=== PATIENT | male | born 1990 | race Two or more races ===

== ENCOUNTER 2024-09-18 07:57 | Emergency (ER) | payer OTHER, SELFPAY ==
[2024-09-18 08:00] VITALS: BP 146/86; PULSE 112; RESP 18; TEMP 36.6; O2SAT 97; BMI 38.7
--- NOTE | 2024-09-18 08:23 | ED.GENADULT ---
HPI - General Adult General Chief complaint: Unspecified Complaint, Adult Stated complaint: cyst - pain Time Seen by Provider: 09/18/24 08:19 History of Present Illness HPI narrative: L upper groin cyst or abcess pt thinks from shaving. pain started 2-3 days ago, pain getting worse. 34-year-old man presenting to the emergency department with complaint of left groin area pain. Began 2 or 3 days ago and this just been escalating and. Is becoming unbearable. No fever. No drainage. Is says he thought he would be a teenager again and shave this area. Suspects that is the nidus. No other trauma noted. Any movement or touch is terribly painful. Can barely walk. No noted penile discharge. Related Data Previous Rx's ?Medication ?Instructions ?Recorded cephalexin 500 mg capsule 500 mg PO TID 8 days #24 caps 09/18/24 oxycodone-acetaminophen 5 mg-325 1 - 2 tab PO Q4-6H PRN pain #8 tabs 09/18/24 mg tablet (Percocet) Allergies Allergy/AdvReac Type Severity Reaction Status Date / Time No Known Drug Allergies Allergy Verified 09/19/24 14:21 Review of Systems Status of ROS: Reports: 6 or more systems reviewed and unremarkable except as noted in History and below PFSH PFS Social History Smoking Status: Never smoker Do you use any of these nicotine containing products: None Second hand tobacco smoke exposure: No How often do you have a drink containing alcohol: never AUDIT-C Alcohol total score: 0 Non-prescribed substance use: denies use service: No Exam Narrative: Exam Narrative: Pleasant. Clearly very uncomfortable. Heavily tattooed arms. Lying frog-legged in bed. At the left mid upper inguinal area there is a 5 cm in largest dimension inguinal swelling. Firm. Erythematous. Some superficial sloughing of skin centrally. Exquisitely tender. No lesions on the scrotal or penile skin. Const: Vital Signs, click to edit/add: Vital Signs - 24 hr 09/18/24 08:00 Temperature 98 F Pulse Rate [Pulse Oximeter] 112 H Respiratory Rate 18 Blood Pressure [Ri ght Upper Arm] 146/86 H Pulse Oximetry 97 Oxygen Delivery Me thod Room Air Documenting provider has reviewed patient's vital signs: yes Course Vital Signs Vital signs: Initial Vital Signs Temperature 98 F 09/18/24 08:00 Temperature Source Temporal Artery Scan 09/18/24 08:00 Pulse Rate 112 H 09/18/24 08:00 Respiratory Rate 18 09/18/24 08:00 Blood Pressure 146/86 H 09/18/24 08:00 Blood Pressure Mean 106 H 09/18/24 08:00 Blood Pressure Position Sitting 09/18/24 08:00 Pulse Oximetry 97 09/18/24 08:00 Oxygen Delivery Method Room Air 09/18/24 08:00 Vital Signs Temperature 98 F 09/18/24 08:00 Pulse Rate 112 H 09/18/24 08:00 Respiratory Rate 18 09/18/24 08:00 Blood Pressure 146/86 H 09/18/24 08:00 Pulse Oximetry 97 09/18/24 08:00 Oxygen Delivery Method Room Air 09/18/24 08:00 Temperature 98 F 09/18/24 08:00 Pulse Rate 112 H 09/18/24 08:00 Respiratory Rate 18 09/18/24 08:00 Blood Pressure 146/86 H 09/18/24 08:00 Pulse Oximetry 97 09/18/24 08:00 Oxygen Delivery Method Room Air 09/18/24 08:00 Medications Administered Medications: Discontinued Medications Generic Name Dose Route Start Last Admin Trade Name Freq PRN Reason Stop Dose Admin Hydromorphone HCl 1 mg 09/18/24 08:33 09/18/24 08:45 Hydromorphone 0.5 Mg/0.5 Ml Inj IVP 09/18/24 08:34 1 mg ONCE ONE Administration Ketorolac Tromethamine 30 mg 09/18/24 08:33 09/18/24 08:45 Ketorolac 30 Mg/Ml Inj IVP 09/18/24 08:34 30 mg ONCE ONE Administration Medical Decision Making MDM Narrative Medical decision making narrative: Presuming abscess here. 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 Will try to get pain under control. Place IV. Will verify suspected abscess with ultrasound. Might need to get General surgery involved I did return to perform point of care ultrasound on this area. Appears to be a 1/2 inch fluid collection on the upper aspect of the swelling. After anesthetizing with lidocaine with epinephrine I did ultrasound locate 18 gauge needle and withdrew a very small, 1 mL or less, amount of serosanguineous liquid. Antibiotic ointment and Band-Aid placed. See patient discharge plan for further discussion Change dressing as needed or at least daily. Consider soaking in Sitz baths 1-2 times daily over the next few days. Can take ibuprofen up to 800 mg per dose or up to 1000 mg of acetaminophen per dose. Might want to take ibuprofen or naproxen to 500 mg 2 times daily regularly over the next few days Prescribing cephalexin and [place] from [facility]. A wound culture will be pending here and we will call you if antibiotics might need to be changed. Medical Records Medical records reviewed: Yes I reviewed the patient's medical records Discharge Plan Discharge Clinical Impression: Inguinal abscess, Cellulitis Patient Disposition: Home w/ Parent or Adult Condition: Improved Additional Instructions: Change dressing as needed or at least daily. Consider soaking in Sitz baths 1-2 times daily over the next few days. Can take ibuprofen up to 800 mg per dose or up to 1000 mg of acetaminophen per dose. Might want to take ibuprofen or naproxen to 500 mg 2 times daily regularly over the next few days Prescribing cephalexin and [place] from [facility]. A wound culture will be pending here and we will call you if antibiotics might need to be changed. Prescriptions: New cephalexin 500 mg capsule 500 mg PO TID 8 Days Qty: 24 0RF oxycodone-acetaminophen [Percocet] 5-325 mg tablet 1 - 2 tab PO Q4-6H PRN (Reason: pain) Qty: 8 0RF Follow Up/Referrals: Provider,Not a Local [Primary Care Provider] - Stand Alone Forms: [employer] Info Instructions
[2024-09-18] MEDS: KETOROLAC 30 MG/ML inj IVP (08:45)
[2024-09-18] MEDS: HYDROmorphone 0.5 mg/0.5 ml inj 1 MG IVP (08:45)
== END 2024-09-18 11:18 | disposition home or self-care (01) ==
PROVIDERS: Emergency Provider Family Medicine
DX: L02.214 Cutaneous abscess of groin (principal)
CPT/HCPCS: 10060; 87070; 87186; 96374; 96375; 99283; 99284; J1171; J1885

== ENCOUNTER 2024-09-19 14:16 | Emergency (ER) | payer OTHER, SELFPAY ==
[2024-09-19 14:22] VITALS: BP 114/74; PULSE 122; RESP 16; TEMP 36.9; O2SAT 97; BMI 34.9
--- NOTE | 2024-09-19 16:27 | ED.GENADULT ---
HPI - General Adult General Date Seen: 09/19/24 Chief complaint: Skin/Abscess/Foreign Body Stated complaint: cyst Time Seen by Provider: 09/19/24 16:26 History of Present Illness HPI narrative: Very pleasant 34-year-old male who is generally healthy. He is accompanied to the ER tonight by his and his daughter for evaluation of a left groin infection. They suspect he has a expanding abscess. He notes that a couple of weeks ago he did use a razor to trim his hair in the pubic region. He says he will never do that again. He developed a small infection which apparently began is an ingrown hair follicle few days ago. It has been increasingly red and swollen. Was seen in the ER yesterday on 09/18 for pain in his left groin area. It sounds like he had a bedside ultrasound and then aspiration of fluid from the area. He was sent home on cephalexin. He was also given a prescription for oxycodone for pain. He took 1 of those pills earlier today but it was completely ineffective so he is not take it anymore. He has had a couple of doses of cephalexin. He is noted be significantly increasing redness and swelling and pain in the left groin. He is not having any fever chills. No other body aches or weakness. He came back to the ER. His believes he probably needs a incision and drainage with packing. Related Data Previous Rx's ?Medication ?Instructions ?Recorded cephalexin 500 mg capsule 500 mg PO TID 8 days #24 caps 09/18/24 oxycodone-acetaminophen 5 mg-325 1 - 2 tab PO Q4-6H PRN pain #8 tabs 09/18/24 mg tablet (Percocet) hydromorphone 2 mg tablet 2 mg PO Q6H PRN pain #10 tabs 09/19/24 (Dilaudid) sulfamethoxazole 800 1 tab PO Q12H #14 tabs 09/19/24 mg-trimethoprim 160 mg tablet (Bactrim DS) Allergies Allergy/AdvReac Type Severity Reaction Status Date / Time No Known Drug Allergies Allergy Verified 09/19/24 14:21 PFSH PFSH Social History Smoking Status: Never smoker Do you use any of these nicotine containing products: None Second hand tobacco smoke exposure: No How often do you have a drink containing alcohol: never AUDIT-C Alcohol total score: 0 Non-prescribed substance use: denies use service: No Exam Narrative: Exam Narrative: Constitutional: Appears well-developed and well-nourished. Alert. Conversant. Non toxic. Very polite. HENT: Head: Atraumatic. Nose: Nose normal. Mouth/Throat: Oral mucosa is clear and moist. no trismus. Eyes: Conjunctivae normal. EOM normal. Pupils equal, round, and reactive to light. No scleral icterus. Neck: Normal range of motion. Neck supple. No tracheal deviation present. Cardiovascular: Tachycardic, regular rhythm. No gallop. No friction rub. No murmur heard. Symmetric radial artery pulses Pulmonary/Chest: Effort normal. No stridor. No respiratory distress. No wheezes. No rales. No rhonchi . No tenderness. Abdominal: Soft. Bowel sounds normal. No distension. No mass. No tenderness. No rebound. No guarding. Musculoskeletal: RUE: Normal range of motion. No tenderness. No deformity LUE: Normal range of motion. No tenderness. No deformity RLE: Normal range of motion. No edema. No tenderness. No deformity LLE: Normal range of motion. No edema. No tenderness. No deformity : normal testicles and scrotum and perineum. No perineal redness or swelling. No evidence for any Tl's gangrene. He does have soft tissue swelling with induration and fluctuance perhaps 6 x 10 cm in size and the patient's left mons pubis superior to the left groin crease. No erythema extending above the inguinal ligament or down onto the patient's left thigh. Suspicious for a cellulitis with overlying abscess Lymph: He has a fair amount of swelling left groin but no definite inguinal adenopathy. Neurological: Alert and oriented to person, place, and time. Normal strength. CN II-VII intact. No sensory deficit. GCS eye subscore is 4. GCS verbal subscore is 5. GCS motor subscore is 6. Normal coordination Skin: Skin is warm and dry. No rash noted. No pallor. Normal capillary refill. Psychiatric: Normal mood. Normal affect. Const: Vital Signs, click to edit/add: Vital Signs - 24 hr 09/19/24 14:22 09/19/24 16:37 09/19/24 18:31 Temperature 98.4 F 97.5 F L 97.8 F Pulse Rate [Pulse Oximeter] 122 H 94 98 Respiratory Rate 16 20 18 Blood Pressure [Ri t Upper Arm] 114/74 120/84 130/83 Pulse Oximetry 97 97 97 Oxygen Delivery Me thod Room Air Room Air Room Air Course Vital Signs Vital signs: Initial Vital Signs Temperature 98.4 F 09/19/24 14:22 Temperature Source Temporal Artery Scan 09/19/24 14:22 Pulse Rate 122 H 09/19/24 14:22 Pulse Rhythm Regular 09/19/24 14:22 Pulse Strength 3+ Normal 09/19/24 14:22 Respiratory Rate 16 09/19/24 14:22 Blood Pressure 114/74 09/19/24 14:22 Blood Pressure Mean 87 09/19/24 14:22 Blood Pressure Position Sitting 09/19/24 14:22 Pulse Oximetry 97 09/19/24 14:22 Oxygen Delivery Method Room Air 09/19/24 14:22 Vital Signs Temperature 98.4 F 09/19/24 14:22 Pulse Rate 122 H 09/19/24 14:22 Respiratory Rate 16 09/19/24 14:22 Blood Pressure 114/74 09/19/24 14:22 Pulse Oximetry 97 09/19/24 14:22 Oxygen Delivery Method Room Air 09/19/24 14:22 Temperature 97.8 F 09/19/24 18:31 Pulse Rate 98 09/19/24 18:31 Respiratory Rate 18 09/19/24 18:31 Blood Pressure 130/83 09/19/24 18:31 Pulse Oximetry 97 09/19/24 18:31 Oxygen Delivery Method Room Air 09/19/24 18:31 Medications Administered Medications: Discontinued Medications Generic Name Dose Route Start Last Admin Trade Name Freq PRN Reason Stop Dose Admin Hydromorphone HCl 1 mg 09/19/24 17:14 09/19/24 17:46 Hydromorphone 0.5 Mg/0.5 Ml Inj IVP 09/19/24 17:15 1 mg ONCE ONE Administration Hydromorphone HCl 2 mg 09/19/24 18:41 09/19/24 18:51 Hydromorphone 2 Mg Tablet PO 09/19/24 18:42 2 mg ONCE ONE Administration Ceftriaxone Sodium 1 gm/ 100 mls @ 200 mls/hr 09/19/24 17:13 09/19/24 18:33 Sodium Chloride IVPB 09/19/24 17:14 Infused ONCE ONE Infusion Ondansetron HCl 4 mg 09/19/24 17:14 09/19/24 17:44 Ondansetron 2 Mg/Ml Inj IVP 09/19/24 17:15 4 mg ONCE ONE Administration Trimethoprim/Sulfamethoxazole 1 tab 09/19/24 18:41 09/19/24 18:52 Sulfa/Trimethoprim 800/160 1 Tab PO 09/19/24 18:42 1 tab ONCE ONE Administration Medical Decision Making MDM Narrative Medical decision making narrative: This patient presents with left groin pain and redness. Pt has signs of an abscess. I&D performed and successfully expressed purulent drainage; see procedure note. No signs of serious infx like necrotizing fasciitis. I do not see any evidence of spread onto the scrotum and perineum to suggest Tl's gangrene. He was seen in the ER yesterday and started on Keflex but has had significant progression in the amount of swelling and redness overnight. He does have tachycardia ; which improved with fluids and pain meds here in the ER. Although he is generally healthy, I am concerned about the infection. IV was started, fluids administered, IV antibiotic. Labs show white count of 19.8. Metabolic profile shows normal electrolytes and blood sugar. Discussed with the patient. I recommended hospitalization for IV antibiotics given failure of outpatient oral antibiotics in degree of spread overnight. However he would strongly prefer to discharge. I think he does have medical decision-making capacity. Therefore will have the patient expand his outpatient antibiotic coverage. Continue cephalexin and Bactrim for possible MRSA. Were culture from yesterday is so far growing Gram-positive cocci which could be MRSA, but no speciation or sensitivity data available yet. Will need wound cares q day. Plan home w/ primary; may return to ED for wound check in 48 hours if he cannot get into his PCP clinic. Antibiotics given as has some erythema and concerns about cellulitis. Warning signs for wound given on discharge instructions and verbally; see d/c instructions. He is not having good control of his pain with oxycodone. This is another reason where he may benefit from admission. However he still wants discharge home. Will try prescription for oral Dilaudid tablets. He understands opiate precautions Lab Data Labs: Lab Results 09/19/24 Range/Units 17:31 WBC 19.84 H (4.50-11.00) K/uL RBC 5.76 (4.30-5.90) m/uL Hgb 12.1 L (13.5-17.5) gm/dL Hct 40.6 (37.0-53.0) % MCV 71 L (80-100) fL MCH 21 L (26-34) pg MCHC 30 L (32-36) gm/dL RDW Coeff of Steffanie 19.0 H (11.5-15.5) % Plt Count 425 (140-440) K/uL Neut % (Auto) 82.9 H (42.0-72.0) % Lymph % (Auto) 9.0 L (20-44) % Coryell % (Auto) 6.9 (0.0-11.0) % Eos % (Auto) 0.5 (0.0-7.0) % Baso % (Auto) 0.3 (0.0-3.0) % Neut # (Auto) 16.40 H (1.7-7.0) K/uL Lymph # (Auto) 1.80 (0.90-2.90) K/uL [place] # (Auto) 1.40 H (0.00-0.90) K/UL Eos # (Auto) 0.10 (0.00-0.50) K/uL Baso # (Auto) 0.10 (0.00-0.30) K/uL Abs Immat Gran (auto) 0.10 (0.00-0.30) K/uL Imm/Tot Granulo (auto) 0.4 % Diff Slide Review Acceptable Review (Acceptable) Sodium 134 L (135-149) mmol/L Potassium 4.2 (3.6-5.1) mmol/L Chloride 102 (96-114) mmol/L Carbon Dioxide 20 (20-32) mmol/L Anion Gap 12 (7-15) mEq/L BUN 15 (5-24) mg/dL Creatinine 1.2 (0.5-1.5) mg/dL Estimated Creat Clear 78.27 Estimated GFR 81 ml/min Glucose 115 (60-115) mg/dL Calcium 8.9 (8.4-10.6) mg/dL Discharge Plan Discharge Clinical Impression: Inguinal abscess, Cellulitis Patient Disposition: Home, Self-Care Condition: Stable Instructions: Cellulitis (ED), Abscess (ED), Abscess Incision and Drainage (DC) Additional Instructions: As we discussed, do not drive or operate machinery for 6 hours after taking opiate pain killers. All pain killers can cause drowsiness, dizziness, constipation, and can be addictive Continue on the antibiotics. Continue cephalexin. Add a 2nd antibiotic, Bactrim, twice daily for 7 days Monitor the area of infection carefully. If you notice expanding redness, worsening swelling, worsening pain, fever or chills, return to the ER immediately to be rechecked Please follow-up with your regular doctor or come back to the ER in 48 hours for a wound check and to remove the wound packing. Even if you are getting better, please recheck with your doctor within 1 week Prescriptions: New hydromorphone [Dilaudid] 2 mg tablet 2 mg PO Q6H PRN (Reason: pain) Qty: 10 0RF sulfamethoxazole-trimethoprim [Bactrim DS] 800-160 mg tablet 1 tab PO Q12H Qty: 14 0RF No Action cephalexin 500 mg capsule 500 mg PO TID 8 Days Qty: 24 0RF oxycodone-acetaminophen [Percocet] 5-325 mg tablet 1 - 2 tab PO Q4-6H PRN (Reason: pain) Qty: 8 0RF Follow Up/Referrals: Provider,Not a Local [Primary Care Provider] - Stand Alone Forms: [facility] Info Instructions Procedures I/D Type: abscess Site: other (Left groin) Pre procedure diagnosis: Left groin abscess/cellulitis Post procedure diagnosis: Left groin have/says cellulitis Verification/time out: correct patient, correct site and correct procedure Anesthesia I&D: lidocaine 1% and with Epi Amount of anesthesia used (mls): 20 Side (if applicable): left Sedation/analgesia: other (Dilaudid 1 mg IV) Technique: incised with #11 blade (Single straight 2.5 cm incision. We did encounter some purulent drainage and also expressed some fairly firm clumpy caseating necrosis. Packed with iodoform gauze.) Irrigation: No Packing used?: iodoform Estimated blood loss (if any): less than 5mls Conclusion: patient tolerated procedure
[2024-09-19 16:37] VITALS: BP 120/84; PULSE 94; RESP 20; TEMP 36.4; O2SAT 97
[2024-09-19 17:43] LABS: Basophils Percent Auto 0.3 % (0.0-3.0); Eosinophils Percent Auto 0.5 % (0.0-7.0); Hematocrit 40.6 % (37.0-53.0); Hemoglobin* 12.1 gm/dL (13.5-17.5); Immature Granulocytes Pct Auto 0.4 %; Mean Corpuscular HGB Conc 30 gm/dL (32-36); Mean Corpuscular Hemoglobin 21 pg (26-34); Mean Corpuscular Volume 71 fL (80-100); Monocytes Percent Auto 6.9 % (0.0-11.0); Neutrophils Percent Auto 82.9 % (42.0-72.0); Platelet Count* 425 K/uL (140-440); Red Blood Count 5.76 m/uL (4.30-5.90); White Blood Count* 19.84 K/uL (4.50-11.00)
[2024-09-19] MEDS: ONDANSETRON 2 MG/ML inj 4 MG IVP (17:44)
[2024-09-19 17:46] LABS: Slide Review Reflex Yes
[2024-09-19] MEDS: HYDROmorphone 0.5 mg/0.5 ml inj 1 MG IVP (17:46)
[2024-09-19] MEDS: cefTRIAXone 1 GM in 0.9 % SODIUM CHLORIDE Mini-bag 100 ML IVPB (17:53)
[2024-09-19 17:56] LABS: Chloride* 102 mmol/L (96-114); Potassium* 4.2 mmol/L (3.6-5.1); Sodium* 134 mmol/L (135-149)
[2024-09-19 17:58] LABS: Creatinine* 1.2 mg/dL (0.5-1.5); Est. Creatinine Clearance* 78.27; Estimated Glomerular Filt Rate 81 ml/min
[2024-09-19 17:59] LABS: Anion Gap 12 mEq/L (7-15); Blood Urea Nitrogen* 15 mg/dL (5-24); Calcium* 8.9 mg/dL (8.4-10.6); Carbon Dioxide* 20 mmol/L (20-32); Glucose* 115 mg/dL (60-115)
[2024-09-19 18:31] VITALS: BP 130/83; PULSE 98; RESP 18; TEMP 36.6; O2SAT 97
[2024-09-19 18:46] LABS: Slide Review Acceptable Review (Acceptable)
[2024-09-19] MEDS: HYDROmorphone 2 MG TABLET PO (18:51)
[2024-09-19] MEDS: SULFA/TRIMETHOPRIM 800/160 1 TAB PO (18:52)
== END 2024-09-19 19:55 | disposition home or self-care (01) ==
PROVIDERS: Emergency Provider Emergency Medicine
DX: L02.214 Cutaneous abscess of groin (principal)
CPT/HCPCS: 10060; 10061; 36415; 80048; 85025; 87070; 96365; 96375; 99284; A9270; J0696; J1171; J2405

== ENCOUNTER 2024-09-20 09:57 | Inpatient (IN) | payer OTHER, SELFPAY ==
[2024-09-20] VITALS (7 sets, daily range): BP systolic 124–135; BP diastolic 78–86; PULSE 92–120; RESP 16–20; TEMP 36.9–37.2; O2SAT 93–97; BMI 39.2; BMI 39.8
--- OUTSIDE RECORDS SUMMARY | 2024-09-20 10:00 | XMS_ITS | Clinical Summary ---
Author Organization [facility] Address [place], [place] [address] Care Team Providers Care Turning Machine Operator Name Role Phone Brian Foster MD Primary Care Provider [phone] Allergies No known active allergies Medications albuterol HFA (PRO-AIR; VENTOLIN; PROVENTIL) 90 mcg/actuation inhaler Inhale 1-2 Puffs by mouth every 4 hours if needed for Shortness of Breath 1st choice. 07/02/20 24 Active predniSONE (DELTASONE) 20 mg tablet TAKE 2 TABLETS BY MOUTH IN THE MORNING WITH FOOD FOR 7 DAYS THEN TAKE 1 TABLET DAILY UNTIL ALL TAKEN 09/05/19 25 Active ondansetron (ZOFRAN ODT) 4 mg disintegrating tablet DISSOLVE 1 TABLET ON THE TONGUE EVERY 8 HOURS FOR NAUSEA 09/05/19 25 Active cetirizine (ZYRTEC) 10 mg tabletIndications: Seasonal allergies Take 1 Tablet (10 mg) by mouth once daily. For allergies. 91 Tablet 2 09/09/19 25 Active buPROPion (WELLBUTRIN XL) 150 mg Extended-Release tabletIndications: Recurrent major depressive disorder, in partial remission (HC),Anxiety Take 1 Tablet (150 mg) by mouth once daily in the morning. For anxiety and depression. 31 Tablet 3 09/09/19 25 Active famotidine (PEPCID) 20 mg tabletIndications: Recurrent major depressive disorder, in partial remission (HC),Anxiety Take 1 Tablet (20 mg) by mouth once daily. For stomach acid. 91 Tablet 2 09/09/19 25 Active omeprazole (PRILOSEC) 40 mg Delayed-Release capsuleIndications :Chronic GERD Take 1 Capsule (40 mg) by mouth once daily before a meal. For stomach acid. 91 Capsule 2 09/09/19 25 Active Phentermine HCl 30 mg capsuleIndications :Obesity, morbid, BMI 40.0-49.9 (HC) Take 1 Capsule (30 mg) by mouth once daily. 30 Capsule 3 09/09/19 25 Active buPROPion (WELLBUTRIN SR) 100 mg Sustained-Release tablet Take 1 Tablet by mouth once daily. 08/12/20 025 Discontin ued(*Medi cation adjustmen t) cetirizine (ZYRTEC) 10 mg tablet Take 1 Tablet by mouth once daily. 08/12/20 24 025 Discontin ued(Reord er (E-cancel not sent)) Phentermine HCl 30 mg capsule Take 30 mg by mouth. 07/31/20 025 Discontin ued(Reord er (E-cancel not sent)) omeprazole (PRILOSEC) 20 mg Delayed-Release capsule Take 20 mg by mouth once daily before a meal. 05/09/20 025 Discontin ued(Reord er (E-cancel not sent)) famotidine (PEPCID) 20 mg tablet Take 1 Tablet by mouth once daily. 07/08/20 24 025 Discontin ued(Reord er (E-cancel not sent)) Active Problems Problem Noted Date Diagnosed Date Recurrent major depressive disorder, in partial remission 09/11/2024 Overview (09/11/2024): August 2024: Increased Wellbutrin SR 100mg once daily ( Per [facility] Provider) to 150mg and changed to Wellbutrin XL. Anxiety 09/11/2024 Overview (09/11/2024): August 2024: Increased Wellbutrin SR 100mg once daily ( Per [facility] Provider) to 150mg and changed to Wellbutrin XL. Chronic GERD 09/11/2024 Overview (09/11/2024): As of August 2024: taking both famotidine and omeprazole, increased omeprazole to 40mg due to poorly controlled symptoms. Seasonal allergies 09/11/2024 Obesity, morbid, BMI 40.0-49.9 09/11/2024 Overview (09/11/2024): Started on phentermine LAte 2023 by Tiffanie Mercer. Encounters Date Type Department Care Team Description 09/09/2024 11:10 AM VISUAL MERCHANDISING DIRECTOR Office Visit [facility] [address] [place] [address] Brian Foster MD Psychiatric Problem 09/09/2024 Travel from Last 3 Months Family History Medical History Relation Name Comments Cancer-breast Mother Relation Name Status Comments Mother Social History Tobacco Use Types Packs/Day Years Used Date Smoking Tobacco: Never Smokeless Tobacco: Never Tobacco Cessation:Counseling Given: Yes Alcohol Use Standard Drinks/Week Comments Yes 0 (1 standard drink = 0.6 oz pure alcohol) a glass of wine every couple months PHQ-2 Answer Date Recorded PHQ-2 TOTAL SCORE 3 09/09/2024 Social Connections Answer Date Recorded Do you often feel lonely or isolated from those around you? 0 09/09/2024 Financial Resource Strain Answer Date R ecorded Difficulty of Paying Living Expenses 3 09/09/2024 Difficulty of Paying Living Expenses Not on file 09/09/2024 Food Insecurity Answer Date Recorded Do you worry your food will run out before you are able to buy more? 1 09/09/2024 Transportation Needs Answer Date Record ed Does lack of transportation keep you from medica l appointments? 1 09/09/2024 Does lack of transportation keep you from work, meetings or getting things that you need? 1 09/09/2024 Housing Stability Answer Date Recorded What is your housing situation today? 1 09/09/2024 Utilities Answer Date Recorded Do you have trouble paying f or utilities (for example, heat, electricity, water, phone)? 1 09/09/2024 Sex and Gender Information Value Date Recorded Sex Assigned at Not on file Legal Sex Male 9:39 AM VISUAL MERCHANDISING DIRECTOR Gender Identity Not on file Sexual Orientation Not on file Obstetrics History Last Filed Vital Signs Vital Sign Reading Time Taken Comments Blood Pressure 137/90 09/09/2024 11:38 AM VISUAL MERCHANDISING DIRECTOR Pulse 86 09/09/2024 11:38 AM VISUAL MERCHANDISING DIRECTOR Temperature - - Respiratory Rate - - Oxygen Saturation 97% 09/09/2024 11:38 AM VISUAL MERCHANDISING DIRECTOR Inhaled Oxygen Concentration - - Weight 114.1 kg (251 lb 8 oz) 09/09/2024 11:38 A M VISUAL MERCHANDISING DIRECTOR Height 168 cm (5' 6.14) 09/09/2024 11:38 AM VISUAL MERCHANDISING DIRECTOR Body Mass Index 40.42 09/09/2024 11:38 AM VISUAL MERCHANDISING DIRECTOR Plan of Treatment Upcoming Encounters Date Type Department Care Team (Late st Contact Info) Description 10/14/2024 11:10 AM VISUAL MERCHANDISING DIRECTOR Office Visit [facility] [address] [place] [address] Brian Foster MD [address] [place] [address] Health Maintenance Due Date Last Done Comments Tdap 2001 HIV for age 15-65 2005 Hepatitis C screening for ag e 18-79 2008 Tetanus booster 2010 COVID-19 vaccine series (2023- season) 2024 Influenza for age 9-49 04/21/2024 BMI (ht and wt on same day) for age 18+ 09/09/2025 09/09/2024 Depression screening for age 12+ 09/09/2025 09/09/19 Pneumococcal series for age 6-49 Aged Out No longer eligible based on patient's age to complete this topic Procedures Procedure Name Priority Date/Time Associated Diagnosis Comments CBC WITH AUTO DIFFERENTIAL Routine 09/09/2024 12:45 PM VISUAL MERCHANDISING DIRECTOR Fatigue, unspecified type BASIC METABOLIC PANEL Routine 09/09/2024 12:45 PM VISUAL MERCHANDISING DIRECTOR Fatigue, unspecified type LIPID PANEL W REFLEX MEASURED LDL Routine 09/09/2024 12:45 PM VISUAL MERCHANDISING DIRECTOR Screening cholesterol level TSH WITH REFLEX Routine 09/09/2024 12:45 PM VISUAL MERCHANDISING DIRECTOR Fatigue, unspecified type from Last 3 Months Results * TSH WITH REFLEX (09/09/2024 12:45 PM VISUAL MERCHANDISING DIRECTOR) TSH W/REFLEX TO FT4 1.22 0.40 - 4.50 mIU/L [facility] Blood BLOOD SPECIMEN / Unknown 09/09/2024 12:45 PM VISUAL MERCHANDISING DIRECTOR 09/09/2024 12:47 PM VISUAL MERCHANDISING DIRECTOR Narrative [facility] - 09/10/2024 3:53 AM VISUAL MERCHANDISING DIRECTOR FASTING:YES FASTING: YES Brian Foster MD CHEMISTRY Final Res ult [employer] [facility] [address] [place] [address], [facility] [address] [place] [address] * (ABNORMAL) LIPID PANEL W REFLEX MEASURED LDL (09/09/2024 12:45 PM VISUAL MERCHANDISING DIRECTOR) CHOLESTEROL, TOTAL 157 <200 mg/dL [facility] HDL CHOLESTEROL 35(L) > OR = 40 mg/dL [facility] TRIGLYCERIDES 153(H) <150 mg/dL [facility] LDL-CHOLESTEROL 97 mg/dL (calc) [facility] Comment: Reference range: <100 Desirable range <100 mg/dL for primary prevention; <70 mg/dL for patients with CHD or diabetic patients with > or = 2 CHD risk factors. LDL-C is now calculated using the Cole-Radha calculation, which is a validated novel method providing better accuracy than the Friedewald equation in the estimation of LDL-C. Cole SS et al. CARON. 2013;310(19): 4150-1559 (http://education.RxRevu.[employer]/faq/YZX824) CHOL/HDLC RATIO 4.5 <5.0 (calc) [facility] NON HDL CHOLESTEROL 122 <130 mg/dL (calc) [facility] Comment: For patients with diabetes plus 1 major ASCVD risk factor, treating to a non-HDL-C goal of <100 mg/dL (LDL-C of <70 mg/dL) is considered a therapeutic option. Blood BLOOD SPECIMEN / Unknown 09/09/2024 12:45 PM VISUAL MERCHANDISING DIRECTOR 09/09/2024 12:47 PM VISUAL MERCHANDISING DIRECTOR Narrative [facility] - 09/10/2024 4:08 AM VISUAL MERCHANDISING DIRECTOR FASTING:YES FASTING: YES us Brian Foster MD CHEMISTRY Final Res ult [facility] [address] [place] [address], [place] [phone] [facility] [address] [place] [address] * (ABNORMAL) CBC AND DIFFERENTIAL (09/09/2024 12:45 PM VISUAL MERCHANDISING DIRECTOR) Pathologist [facility] WHITE BLOOD CELL COUNT 14.5(H) 3.8 - 10.8 Thousand/ uL [facility] RED BLOOD CELL COUNT 5.54 4.20 - 5.80 Million/u L [facility] HEMOGLOBIN 11.8(L) 13.2 - 17.1 g/dL [facility] HEMATOCRIT 39.7 38.5 - 50.0 % [facility] MCV 71.7(L) 80.0 - 100.0 fL [facility] MCH 21.3(L) 27.0 - 33.0 pg [facility] MCHC 29.7(L) 32.0 - 36.0 g/dL [facility] Comment: For adults, a slight decrease in the calculated MCHC value (in the range of 30 to 32 g/dL) is most likely not clinically significant; however, it should be interpreted with caution in correlation with other red cell parameters and the patient's clinical condition. RDW 20.1(H) 11.0 - 15.0 % [facility] PLATELET COUNT 496(H) 140 - 400 Thousand/ uL [facility] MPV 10.6 7.5 - 12.5 fL [facility] ABSOLUTE NEUTROPHILS 12,108(H) 1,500 - 7,800 cells/uL [facility] ABSOLUTE LYMPHOCYTES 1,784 850 - 3,900 cells/uL [facility] ABSOLUTE MONOCYTES 537 200 - 950 cells/uL [facility] ABSOLUTE EOSINOPHILS 15 15 - 500 cells/uL [facility] ABSOLUTE BASOPHILS 58 0 - 200 cells/uL [facility] NEUTROPHILS 83.5 % [facility] LYMPHOCYTES 12.3 % [facility] MONOCYTES 3.7 % [facility] EOSINOPHILS 0.1 % [facility] BASOPHILS 0.4 % [facility] Blood BLOOD SPECIMEN / Unknown 09/09/2024 12:45 PM VISUAL MERCHANDISING DIRECTOR 09/09/2024 12:47 PM VISUAL MERCHANDISING DIRECTOR Narrative [facility] - 09/10/2024 2:43 AM VISUAL MERCHANDISING DIRECTOR FASTING:YES FASTING: YES us Brian Foster MD HEMATOLOGY Final Res ult [facility] [address] [place] [address], [facility] [address] [place] [address] * BASIC METABOLIC PANEL (09/09/2024 12:45 PM VISUAL MERCHANDISING DIRECTOR) Pathologist [facility] GLUCOSE 85 65 - 99 mg/dL [facility] Comment: Fasting reference interval UREA NITROGEN (BUN) 14 7 - 25 mg/dL [facility] CREATININE 1.08 0.60 - 1.26 mg/dL [facility] EGFR 92 > OR = 60 mL/min/1. 73m2 [facility] BUN/CREATININE RATIO SEE NOTE: 6 - 22 (calc) [facility] Comment: Not Reported: BUN and Creatinine are within reference range. SODIUM 138 135 - 146 mmol/L [facility] POTASSIUM 4.1 3.5 - 5.3 mmol/L [facility] CHLORIDE 105 98 - 110 mmol/L [facility] CARBON DIOXIDE 24 20 - 32 mmol/L [facility] ELECTROLYTE BALANCE 9 7 - 17 mmol/L (calc) [facility] CALCIUM 9.4 8.6 - 10.3 mg/dL [facility] Blood BLOOD SPECIMEN / Unknown 09/09/2024 12:45 PM VISUAL MERCHANDISING DIRECTOR 09/09/2024 12:47 PM VISUAL MERCHANDISING DIRECTOR Narrative [facility] - 09/10/2024 4:08 AM VISUAL MERCHANDISING DIRECTOR FASTING:YES FASTING: YES us Brian Foster MD CHEMISTRY Final Res ult [facility] [address] [place] [address], [facility] [address] [place] [address] from Last 3 Months [facility] Turning Machine Operator Relationship Specialty Start Date End Date Brian [place] [address] [place] [address] PCP - General Family Practice 09/06/24
--- NOTE | 2024-09-20 11:36 | ED.GENADULT ---
HPI - General Adult General Chief complaint: Skin/Abscess/Foreign Body Stated complaint: Abcsess. Seen yesterday Time Seen by Provider: 09/20/24 11:06 Source: patient Mode of arrival: ambulatory Limitations: no limitations History of Present Illness HPI narrative: [age] year presenting with groin pain. This is patient's 3rd ER visit for a mons pubis abscess that was I and D yesterday. Patient is on Keflex and Bactrim. States that the redness and pain has progressed significantly since his ER visit yesterday. It was recommended that he be hospitalized yesterday and patient refused. He presents today with a different perspective. Denies any vomiting or fevers. Has been sweating quite a bit. Feels generally ill. Related Data Previous Rx's ?Medication ?Instructions ?Recorded cephalexin 500 mg capsule 500 mg PO TID 8 days #24 caps 09/18/24 oxycodone-acetaminophen 5 mg-325 1 - 2 tab PO Q4-6H PRN pain #8 tabs 09/18/24 mg tablet (Percocet) hydromorphone 2 mg tablet 2 mg PO Q6H PRN pain #10 tabs 09/19/24 (Dilaudid) sulfamethoxazole 800 1 tab PO Q12H #14 tabs 09/19/24 mg-trimethoprim 160 mg tablet (Bactrim DS) Allergies Allergy/AdvReac Type Severity Reaction Status Date / Time No Known Drug Allergies Allergy Verified 09/19/24 14:21 Review of Systems Status of ROS: Reports: 10 or more systems reviewed and unremarkable except as noted in History and below PFSH PFSH Social History Smoking Status: Never smoker Do you use any of these nicotine containing products: None Second hand tobacco smoke exposure: No How often do you have a drink containing alcohol: never AUDIT-C Alcohol total score: 0 Non-prescribed substance use: denies use service: No Exam Narrative: Exam Narrative: Well-nourished well-developed patient, appears very uncomfortable. Alert and oriented. Answers questions appropriately. Mood and affect are appropriate. Thoughts are goal oriented and rational. No tangential or magical thinking noted. Patient speaks in full sentences without needing to catch his breath. HEENT: Normocephalic atraumatic. Pupils are equally round reactive to light. Extraocular muscles are intact. Conjunctivae are moist without any icterus noted. Moist mucous membranes. Cardiovascular: Heart is regular rate and rhythm S1 and S2 are present without any murmurs. Lungs: Clear to auscultation bilaterally no wheezes rhonchi or rales are appreciated. Patient takes deep breaths without any discomfort. Abdomen: Soft and nontender nondistended with normal bowel sounds. Extremities: Bilateral lower extremities are without edema. Normal DP and PT pulses. : Patient has an open wound with packing over the left mons pubis he has a black outline with marker with surrounding erythema past this outlined by several cm. He has tenderness across the entire area. Erythema extends past the left groin crease into the upper thigh. Const: Vital Signs, click to edit/add: Vital Signs - 24 hr 09/20/24 10:30 Temperature 98.8 F Pulse Rate [Right Pulse Oximeter] 120 H Respiratory Rate 20 Blood Pressure [Ri ght Upper Arm] 124/78 Pulse Oximetry 97 Oxygen Delivery Me thod Room Air Course Course ED Course: IV established and patient is treated with IV vancomycin. Labs are drawn: White cell count is better at 16.76. Thrombocytosis at 452. Chemistries are unremarkable. Ultrasound of the area does not show any deeper abscess formation. Vital Signs Vital signs: Initial Vital Signs Temperature 98.8 F 09/20/24 10:30 Temperature Source Temporal Artery Scan 09/20/24 10:30 Pulse Rate 120 H 09/20/24 10:30 Respiratory Rate 09/20/24 10:30 Blood Pressure 124/78 09/20/24 10:30 Blood Pressure Mean 93 09/20/24 10:30 Blood Pressure Position Sitting 09/20/24 10:30 Pulse Oximetry 97 09/20/24 10:30 Oxygen Delivery Method Room Air 09/20/24 10:30 Vital Signs Temperature 98.8 F 09/20/24 10:30 Pulse Rate 120 H 09/20/24 10:30 Respiratory Rate 20 09/20/24 10:30 Blood Pressure 124/78 09/20/24 10:30 Pulse Oximetry 97 09/20/24 10:30 Oxygen Delivery Method Room Air 09/20/24 10:30 Temperature 98.8 F 09/20/24 10:30 Pulse Rate 120 H 09/20/24 10:30 Respiratory Rate 20 09/20/24 10:30 Blood Pressure 124/78 09/20/24 10:30 Pulse Oximetry 97 09/20/24 10:30 Oxygen Delivery Method Room Air 09/20/24 10:30 Medications Administered Medications: Generic Name Dose Route Start Last Admin Trade Name Mayra PRN Reason Stop Dose Admin Vancomycin/PEG/NADA/Lysine/Water 2 gm in 400 mls @ 200 mls/hr 09/20/24 11:15 09/20/24 12:14 Vancomycin 2 Gm/400 Ml IVPB 09/20/24 13:14 200 mls/hr ONCE ONE Administration Protocol Discontinued Medications Generic Name Dose Route Start Last Admin Trade Name Freq PRN Reason Stop Dose Admin Hydromorphone HCl 0.5 mg 09/20/24 11:38 09/20/24 12:25 Hydromorphone 0.5 Mg/0.5 Ml Inj IVP 09/20/24 11:39 0.5 mg ONCE ONE Administration Sodium Chloride 1,000 mls @ 1,000 mls/hr 09/20/24 11:15 09/20/24 12:20 0.9 % Sodium Chloride 1000 Ml IV 09/20/24 12:14 1,000 mls/hr .Q1H KIMO Administration Medical Decision Making MDM Narrative Medical decision making narrative: 34-year-old male with cellulitis and abscess of the mons pubis, failed outpatient antibiotics. Patient will be admitted for further management. Lab Data Labs: Lab Results 09/20/24 Range/Units 12:10 WBC 16.76 H (4.50-11.00) K/uL RBC 5.56 (4.30-5.90) m/uL Hgb 11.8 L (13.5-17.5) gm/dL Hct 39.6 (37.0-53.0) % MCV 71 L (80-100) fL MCH 21 L (26-34) pg MCHC 30 L (32-36) gm/dL RDW Coeff of Steffanie 18.8 H (11.5-15.5) % Plt Count 452 H (140-440) K/uL Neut % (Auto) 70.2 (42.0-72.0) % Lymph % (Auto) 19.1 L (20-44) % [place] % (Auto) 8.7 (0.0-11.0) % Eos % (Auto) 1.1 (0.0-7.0) % Baso % (Auto) 0.5 (0.0-3.0) % Neut # (Auto) 11.80 H (1.7-7.0) K/uL Lymph # (Auto) 3.20 H (0.90-2.90) K/uL [place] # (Auto) 1.50 H (0.00-0.90) K/UL Eos # (Auto) 0.20 (0.00-0.50) K/uL Baso # (Auto) 0.10 (0.00-0.30) K/uL Abs Immat Gran (auto) 0.10 (0.00-0.30) K/uL Imm/Tot Granulo (auto) 0.4 % Sodium 136 (135-149) mmol/L Potassium 4.3 (3.6-5.1) mmol/L Chloride 100 (96-114) mmol/L Carbon Dioxide 24 (20-32) mmol/L Anion Gap 12 (7-15) mEq/L BUN 16 (5-24) mg/dL Creatinine 1.4 (0.5-1.5) mg/dL Estimated Creat Clear 67.09 Estimated GFR 68 ml/min Glucose 77 (60-115) mg/dL Calcium 8.9 (8.4-10.6) mg/dL Imaging Data Soft tissue ultrasound: Attestation: I have reviewed the pertinent imaging results. Radiologist's impression: Indication: Left lateral mons pubis infection with swelling and redness. Technique: Grayscale and color imaging was performed over the area of interest in the left groin/mons pubis region. Comparison: None. Findings: There is apparent soft tissue swelling and hyperemia in the imaged area of interest. No discrete fluid collection to suggest abscess. Impression: No suspicious fluid collection. Discharge Plan Discharge Clinical Impression: Abscess of skin or subcutaneous tissue Patient Disposition: Admitted As Observation Condition: Stable Prescriptions: No Action cephalexin 500 mg capsule 500 mg PO TID 8 Days Qty: 24 0RF oxycodone-acetaminophen [Percocet] 5-325 mg tablet 1 - 2 tab PO Q4-6H PRN (Reason: pain) Qty: 8 0RF hydromorphone [Dilaudid] 2 mg tablet 2 mg PO Q6H PRN (Reason: pain) Qty: 10 0RF sulfamethoxazole-trimethoprim [Bactrim DS] 800-160 mg tablet 1 tab PO Q12H Qty: 14 0RF Follow Up/Referrals: Provider,Not a Local [Primary Care Provider] -
[2024-09-20] MEDS: VANCOMYCIN 2 GM/400 ML 2 GM/400 ML PIGGYBACK IVPB (12:14)
[2024-09-20] MEDS: 0.9 % SODIUM CHLORIDE 1000 ml 1,000 ML IV (12:20)
[2024-09-20 12:25] LABS: Basophils Percent Auto 0.5 % (0.0-3.0); Eosinophils Percent Auto 1.1 % (0.0-7.0); Hematocrit 39.6 % (37.0-53.0); Hemoglobin* 11.8 gm/dL (13.5-17.5); Immature Granulocytes Pct Auto 0.4 %; Lymphocytes Percent Auto 19.1 % (20-44); Mean Corpuscular HGB Conc 30 gm/dL (32-36); Mean Corpuscular Hemoglobin 21 pg (26-34); Mean Corpuscular Volume 71 fL (80-100); Monocytes Percent Auto 8.7 % (0.0-11.0); Neutrophils Percent Auto 70.2 % (42.0-72.0); Platelet Count* 452 K/uL (140-440); RDW Coefficient of Variation % 18.8 % (11.5-15.5); Red Blood Count 5.56 m/uL (4.30-5.90); White Blood Count* 16.76 K/uL (4.50-11.00)
[2024-09-20] MEDS: HYDROmorphone 0.5 mg/0.5 ml inj IVP ×5 (12:25→23:59)
[2024-09-20 12:28] LABS: Slide Review Reflex Yes
[2024-09-20 12:38] LABS: Chloride* 100 mmol/L (96-114); Potassium* 4.3 mmol/L (3.6-5.1); Sodium* 136 mmol/L (135-149)
[2024-09-20 12:41] LABS: Anion Gap 12 mEq/L (7-15); Blood Urea Nitrogen* 16 mg/dL (5-24); Carbon Dioxide* 24 mmol/L (20-32); Creatinine* 1.4 mg/dL (0.5-1.5); Est. Creatinine Clearance* 67.09; Estimated Glomerular Filt Rate 68 ml/min
[2024-09-20 12:42] LABS: Calcium* 8.9 mg/dL (8.4-10.6); Glucose* 77 mg/dL (60-115)
[2024-09-20 13:01] LABS: C Reactive Protein* 16.6 mg/dL (0.5-1.0)
[2024-09-20 13:21] LABS: Slide Review Acceptable Review (Acceptable)
--- NOTE | 2024-09-20 13:42 | PM.IMHP1 ---
Hospitalist- H&P: HPI History of Present Illness Date Seen: 09/20/24 Chief complaint: Abcsess. Seen yesterday Narrative: Gaurav Hooper is a 34 year old male who presented to the ER for the 3rd time this week for groin pain in the setting of cellulitis/abscess. He was 1st seen 2 days ago, placed on Keflex; symptoms worsened and he presented yesterday. At that time I&D performed, admission recommended but patient deferred. Today he re-presented for worsening pain. Culture obtained earlier in the week is + for MRSA. ER: - WBC 16, CRP 16, afebrile, pulse 120 - given Vancomycin IV, Dilaudid IV Admitted for worsening cellulitis in the setting of outpatient antibiotic failure. Generally healthy. Recently established care with Dr. Foster at the [facility] (placed on meds at that time, patient states not taking). Review of Systems Status of ROS: Reports: 10 or more systems reviewed and unremarkable except as noted in History and below PFSH PFS Social History (Updated 09/20/24 @ 14:09 by Cindy Ann MD) Narrative: Gina would be MDM if needed. Nonsmoker, rare ETOH use. distribution manager for work. Requests DNR status. Smoking Status: Never smoker Do you use any of these nicotine containing products: None Second hand tobacco smoke exposure: No How often do you have a drink containing alcohol: never AUDIT-C Alcohol total score: 0 Non-prescribed substance use: denies use service: No Meds Home Medications and Allergies Home Medications ?Medication ?Instructions ?Recorded ?Confirmed ?Type bupropion HCl 150 mg 24 hr tablet, 150 mg PO DAILY 09/20/24 09/20/24 History extended release cetirizine 10 mg tablet 10 mg PO DAILY 09/20/24 09/20/24 History famotidine 20 mg tablet 20 mg PO DAILY 09/20/24 09/20/24 History omeprazole 40 mg capsule,delayed 40 mg PO DAILY 09/20/24 09/20/24 History release phentermine 30 mg capsule 30 mg PO DAILY 09/20/24 09/20/24 History Allergies Allergy/AdvReac Type Severity Reaction Status Date / Time No Known Drug Allergies Allergy Verified 09/19/24 14:21 Exam Narrative: Exam Narrative: GEN: Alert and oriented, appears uncomfortable but nontoxic HEENT: EOMIs bilaterally, no scleral icterus CV: Heart rate 90s without concerning murmurs R: LCTA bilaterally without concerning wheezing Ext: wwp, no concerning edema Skin: Erythema and induration over groin, outlined. No fluctuance. Packing noted Neuro: Nonfocal Psych: Appropriate Const: Vital Signs, click to edit/add: Vital Signs - 24 hr 09/20/24 10:30 Temperature 98.8 F Pulse Rate [Right Pulse Oximeter] 120 H Respiratory Rate 20 Blood Pressure [Ri ght Upper Arm] 124/78 Pulse Oximetry 97 Oxygen Delivery Me thod Room Air Hospitalist - H&P: Result Labs Labs: Short CBC 09/20/24 Range/Units 12:10 WBC 16.76 H (4.50-11.00) K/uL Hgb 11.8 L (13.5-17.5) gm/dL Hct 39.6 (37.0-53.0) % Plt Count 452 H (140-440) K/uL BMP 09/20/24 12:10 Sodium 136 Potassium 4.3 Chloride 100 Carbon Dioxide 24 BUN 16 Creatinine 1.4 Glucose 77 Calcium 8.9 Assessment and Plan Assessment and plan (1) MRSA (methicillin resistant staph aureus) culture positive: Problem comment: - failed outpatient management, wound culture from 09/19/24 + for MRSA - vancomycin initiated 09/20, continue - warm compresses thrice daily, pain management Status: Acute (2) Cellulitis: Status: Acute Plan - per above - updated, questions answered
[2024-09-20] MEDS: OXYCODONE 5 MG TABLET PO ×2 (14:32→21:18)
--- NOTE | 2024-09-20 19:22 | PC.NURSE ---
End of Shift: Patient pleasant and cooperative, A&O. VSS, afebrile. SpO2 maintained above 90% on RA. Tolerating regular diet. Patient reports pain on his groin this shift, managed with PRN medication, see MAR. Independent in room.
[2024-09-20] MEDS: SODIUM CHLORIDE 0.9 % (FLUSH) 10 ML SYRINGE 5 ML IVF ×2 (19:49→21:58)
[2024-09-20] MEDS: VANCOMYCIN 1.25 GM/250 ML 1.25 GM/250 ML PIGGYBACK IVPB (23:55)
[2024-09-21] VITALS (11 sets, daily range): BP systolic 130–145; BP diastolic 66–89; PULSE 95–128; RESP 18–20; TEMP 37–38.4; O2SAT 93–96
[2024-09-21] MEDS: HYDROmorphone 0.5 mg/0.5 ml inj IVP ×2 (02:18→04:05)
[2024-09-21] MEDS: SODIUM CHLORIDE 0.9 % (FLUSH) 10 ML SYRINGE 5 ML IVF ×7 (02:19→22:16)
[2024-09-21] MEDS: ACETAMINOPHEN 325 MG TABLET 975 MG PO ×3 (04:05→22:15)
[2024-09-21] MEDS: ONDANSETRON ODT 4 MG TAB PO (04:34)
--- NOTE | 2024-09-21 04:40 | PC.NURSE ---
Mexican Food Machine Tender left message with [facility] providing update that dose of PRN Zofran given PSO as order states to update MD once started. Mexican Food Machine Tender also requested pt be given PRN order for nausea ongoing. Pt frequently taking pain medications and having some anxiety when seeing wound and drainage from groin wound. conveyor belt repairer aware.
--- NOTE | 2024-09-21 06:09 | PC.NURSE ---
End of shift note [id number]: Pt A&Ox4 and able to make needs known. He is independent with transferring/ambulation in room. IV ABX administered per order. Abscess to L groin noted to be HEEL CASER with small amount of dried sanguineous drainage present and surrounding redness and warmth. Pt has been afebrile and on RA throughout the shift. No c/o CP or vomiting noted. PRN Zofran given for nausea after pt toileted and saw drainage from wound. He is continent of bladder. Pain to L groin treated with PRN pain medications along with rest, repositioning and warm compress per MD instruction. Pt requesting to have PRN IV Dilaudid frequently throughout the shift instead of PRN Oxycodone stating Oxycodone is ineffective for pain control. Pt tolerating regular diet with bringing food and spending the night. Pt refused HS Lovenox when educated. Dressing placed over cellulitis wound to L groin due to noting drainage after pt toileted. ABD placed over wound to keep clean and dry, secured with paper tape. PRN Tylenol given for temp of 99.9 this morning which was effective upon followup. Call light within reach. ?
[2024-09-21 06:46] LABS: Basophils Percent Auto 0.6 % (0.0-3.0); Hematocrit 36.2 % (37.0-53.0); Hemoglobin* 10.8 gm/dL (13.5-17.5); Immature Granulocytes Pct Auto 0.3 %; Lymphocytes Percent Auto 7.5 % (20-44); Mean Corpuscular HGB Conc 30 gm/dL (32-36); Mean Corpuscular Hemoglobin 21 pg (26-34); Mean Corpuscular Volume 71 fL (80-100); Monocytes Percent Auto 6.3 % (0.0-11.0); Neutrophils Percent Auto 83.3 % (42.0-72.0); Platelet Count* 407 K/uL (140-440); RDW Coefficient of Variation % 18.5 % (11.5-15.5); Red Blood Count 5.12 m/uL (4.30-5.90); White Blood Count* 12.55 K/uL (4.50-11.00)
[2024-09-21 06:56] LABS: Slide Review Reflex No
[2024-09-21 06:59] LABS: Chloride* 102 mmol/L (96-114)
[2024-09-21 07:00] LABS: Potassium* 4.1 mmol/L (3.6-5.1); Sodium* 134 mmol/L (135-149)
[2024-09-21 07:02] LABS: Creatinine* 1.2 mg/dL (0.5-1.5); Est. Creatinine Clearance* 78.27; Estimated Glomerular Filt Rate 81 ml/min
[2024-09-21 07:03] LABS: Anion Gap 10 mEq/L (7-15); Blood Urea Nitrogen* 13 mg/dL (5-24); Calcium* 8.4 mg/dL (8.4-10.6); Carbon Dioxide* 22 mmol/L (20-32); Glucose* 109 mg/dL (60-115)
[2024-09-21] MEDS: KETOROLAC 15 MG/ML inj IVP (08:52)
[2024-09-21] MEDS: OMEPRAZOLE 20 MG CAPSULE DR PO ×2 (08:53→17:53)
[2024-09-21] MEDS: MORPHINE 2 MG/ML inj IVP ×3 (10:41→22:15)
[2024-09-21] MEDS: VANCOMYCIN 1.5 GM/300 ML 1.5 GM/300 ML PIGGYBACK IVPB ×2 (12:24→23:54)
[2024-09-21] MEDS: HYDROmorphone 2 MG TABLET PO ×2 (13:14→20:16)
--- NOTE | 2024-09-21 14:42 | P.IMPN_ITS ---
Progress Note: A&P Assessment and plan (1) Inguinal abscess: Problem details: - Lt inguinal abcess S/P I&D. - Failed outpatient management, wound culture from 09/18/24 + for MRSA. - vancomycin initiated 09/20. - Will increase vancomycin dose 09/21. - warm compresses thrice daily. - Pain management: Acetaminophin, Hydromorphone PO, morphine IV PRN. - P/E cellulitis not extending to testes or perenium. Soft on palpation, no fluctuation. Color is not duscky and no crackling or empahsematous sensation on exam. - U/S done. Discussed U/S results w/ Gen Sx Dr Cannon. If no improvement s/p I&D and Tx w/ vancomycin, next step is a CT scan w/ contrast. Status: Acute (2) MRSA (methicillin resistant staph aureus) culture positive: Problem details: -As above Status: Acute (3) Cellulitis: Problem details: -As above -In addition, pt had an incision and drainage and a drain inserted at the ED. -Ordered a wound care consult. Status: Acute Time Spent With Patient Total time spent: Today I spent 50 minutes seeing the patient, reviewing Expanse and EPIC notes/diagnostics, discussing the care plan with our care time that includes social work, PT/OT, pharmacy, RT, [facility] and documenting my impressions and plan in the medical record. Subjective Date Seen: 09/21/24 Interval history: Pt was seen and examined at bedside. Pt states that he is in pain and that he wants Dilaudid (declining other meds including morphine). added PO dilaudid to IV morphine. P/E cellulitis not extending to testes or perenium. Soft on palpation, no fluctuation. Color is not duscky and no crackling or empahsematous sensation on exam. Low threshold for CT scaning if no improvement. Exam Narrative: Exam Narrative: Physical exam GENERAL: Comfortable, no acute distress. HEAD AND NECK: Atraumatic, normocephalic CARDIOVASCULAR: RRR. Normal S1, S2. No murmurs. RESPIRATORY: Clear to auscultation B/L. Good air entry B/L. No wheezes or rhonchi. MSK: Lt inguinal redness, drain out of a 1 cm wound (s/p I&D), no pus. Redness is not extending to testes or perenium. Soft on palpation, no fluctuation. Color is not duscky and no crackling or empahsematous sensation on exam. NEUROLOGY: Alert, awake, oriented X 3. Normal speech. PSYCH: Normal mood, normal affect. Const: Vital Signs, click to edit/add: Vital Signs - 24 hr 09/20/24 15:00 09/20/24 15:00 09/20/24 15:28 Temperature 99.0 F Pulse Rate [Pulse Oximeter] 96 96 Respiratory Rate 18 16 16 Blood Pressure [Le ft Arm] 133/82 Blood Pressure [Ri ght Arm] Pulse Oximetry 96 96 Oxygen Delivery Me thod Room Air Room Air 09/20/24 19:38 09/20/24 22:13 09/20/24 23:53 Temperature 98.5 F 98.9 F Pulse Rate [Pulse Oximeter] 95 95 98 Respiratory Rate 16 16 Blood Pressure [Le ft Arm] 135/86 Blood Pressure [Ri ght Arm] 131/80 Pulse Oximetry 93 95 Oxygen Delivery Me thod Room Air Room Air 09/21/24 02:28 09/21/24 04:05 09/21/24 06:08 Temperature 99.3 F 99.9 F H 98.9 F Pulse Rate [Pulse Oximeter] 104 H Respiratory Rate 18 Blood Pressure [Le ft Arm] Blood Pressure [Ri ght Arm] 130/75 Pulse Oximetry 93 Oxygen Delivery Me thod Room Air 09/21/24 08:18 09/21/24 08:52 09/21/24 10:39 Temperature 100.7 F H 100.7 F H 98.6 F Pulse Rate [Pulse Oximeter] 95 Respiratory Rate 18 Blood Pressure [Le ft Arm] Blood Pressure [Ri ght Arm] 141/85 H Pulse Oximetry 95 Oxygen Delivery Me thod Labs Labs: Laboratory Results - last 24 hr 09/21/24 05:56 WBC 12.55 H RBC 5.12 Hgb 10.8 L Hct 36.2 L MCV 71 L MCH 21 L MCHC 30 L RDW Coeff of Steffanie 18.5 H Plt Count 407 Neut % (Auto) 83.3 H Lymph % (Auto) 7.5 L [place] % (Auto) 6.3 Eos % (Auto) 2.0 Baso % (Auto) 0.6 Neut # (Auto) 10.50 H Lymph # (Auto) 0.90 [place] # (Auto) 0.80 Eos # (Auto) 0.30 Baso # (Auto) 0.10 Abs Immat Gran (auto) 0.00 Imm/Tot Granulo (auto) 0.3 Sodium 134 L Potassium 4.1 Chloride 102 Carbon Dioxide 22 Anion Gap 10 BUN 13 Creatinine 1.2 Estimated Creat Clear 78.27 Estimated GFR 81 Glucose 109 Calcium 8.4 C-Reactive Protein 9.0 H
[2024-09-22] VITALS (8 sets, daily range): BP systolic 122–160; BP diastolic 78–89; PULSE 93–111; RESP 16–20; TEMP 37.1–39.1; O2SAT 95–98
[2024-09-22] MEDS: HYDROmorphone 2 MG TABLET PO ×4 (02:05→20:30)
[2024-09-22] MEDS: IBUPROFEN 400 MG TABLET PO ×2 (03:19→12:13)
[2024-09-22] MEDS: MORPHINE 2 MG/ML inj IVP ×2 (03:20→09:57)
[2024-09-22] MEDS: SODIUM CHLORIDE 0.9 % (FLUSH) 10 ML SYRINGE 5 ML IVF ×2 (03:20→10:08)
[2024-09-22 04:12] LABS: PCR FLU A POSITIVE PCR FLU A (Negative); PCR FLU B Negative PCR FLU B (Negative); PCR RSV Negative PCR RSV (Negative); SARS PCR* Negative SARS-CoV-2 (Negative)
--- NOTE | 2024-09-22 05:59 | PC.NURSE ---
[id number] Pt slept on and off during shift. abscess to groin outlined, ABD dressing applied, pt removed dressing during night, educated pt on importance of leaving dressing in place and replaced dressing with new one. Old dressing with moderate amount of purulent drainage on it. Pt states he feels like he's been hit by a dump truck, temp as high as 102.4, tylenol and ibuprofen administered with little relief in temp, and new cough noted, updated Dr Whyte, requested and received order for triple swab, pt tested positive for Influenza A.
[2024-09-22] MEDS: OMEPRAZOLE 20 MG CAPSULE DR PO ×2 (06:39→17:23)
[2024-09-22 07:45] LABS: Hematocrit 35.9 % (37.0-53.0); Hemoglobin* 10.7 gm/dL (13.5-17.5); Mean Corpuscular HGB Conc 30 gm/dL (32-36); Mean Corpuscular Hemoglobin 21 pg (26-34); Mean Corpuscular Volume 71 fL (80-100); Platelet Count* 356 K/uL (140-440); Red Blood Count 5.04 m/uL (4.30-5.90); White Blood Count* 8.36 K/uL (4.50-11.00)
[2024-09-22 07:46] LABS: Slide Review Reflex No
[2024-09-22 07:57] LABS: Chloride* 105 mmol/L (96-114); Sodium* 136 mmol/L (135-149)
[2024-09-22 08:00] LABS: Anion Gap 10 mEq/L (7-15); Blood Urea Nitrogen* 9 mg/dL (5-24); Carbon Dioxide* 21 mmol/L (20-32); Est. Creatinine Clearance* 93.93; Estimated Glomerular Filt Rate 101 ml/min; Glucose* 96 mg/dL (60-115)
[2024-09-22 08:01] LABS: Calcium* 8.4 mg/dL (8.4-10.6)
[2024-09-22] MEDS: ACETAMINOPHEN 325 MG TABLET 975 MG PO ×3 (08:01→20:30)
[2024-09-22] MEDS: 0.9 % SODIUM CHLORIDE 1000 ml 1,000 ML 125 ML IV ×2 (09:57→18:19)
[2024-09-22] MEDS: BENZONATATE 100 MG CAPSULE 200 MG PO ×3 (09:57→20:30)
[2024-09-22] MEDS: VANCOMYCIN 1.5 GM/300 ML 1.5 GM/300 ML PIGGYBACK IVPB ×2 (12:03→23:51)
--- NOTE | 2024-09-22 13:01 | P.IMPN_ITS ---
Progress Note: A&P Assessment and plan (1) Inguinal abscess: Problem details: - Lt inguinal abcess S/P I&D. Improving - Failed outpatient management, wound culture from 09/18/24 + for MRSA. - vancomycin initiated 09/20. - Will increase vancomycin dose 09/21. - warm compresses thrice daily. - Pain management: Acetaminophin, Hydromorphone PO, morphine IV PRN. - P/E cellulitis not extending to testes or perenium. Soft on palpation, no fluctuation. Color is not duscky and no crackling or empahsematous sensation on exam. - U/S done. Discussed U/S results w/ Gen Sx Dr Cannon. If no improvement s/p I&D and Tx w/ vancomycin, next step is a CT scan w/ contrast. Status: Acute (2) MRSA (methicillin resistant staph aureus) culture positive: Problem details: -As above Status: Acute (3) Cellulitis: Problem details: -As above -Improving -In addition, pt had an incision and drainage and a drain inserted at the ED. -Ordered a wound care consult. Status: Acute Time Spent With Patient Total time spent: Today I spent 50 minutes seeing the patient, reviewing Expanse and EPIC notes/diagnostics, discussing the care plan with our care time that includes social work, PT/OT, pharmacy, RT, intermediate and documenting my impressions and plan in the medical record. Subjective Date Seen: 09/22/24 Interval history: Pt was seen and examined at bedside. Pt states that he is feeling much better, improved cellulitis on my examination, all questions were answered. Exam Narrative: Exam Narrative: GENERAL: Comfortable, no acute distress. HEAD AND NECK: Atraumatic, normocephalic CARDIOVASCULAR: RRR. Normal S1, S2. No murmurs. RESPIRATORY: Clear to auscultation B/L. Good air entry B/L. No wheezes or rhonchi. MSK: Lt inguinal redness improving, light pinkish in color, drain out of a 1 cm wound (s/p I&D), very minimal discharge. Redness is not extending to testes or perenium. Soft on palpation, no fluctuation. Color is not duscky (light pink skin color) and no crackling or empahsematous sensation on exam. NEUROLOGY: Alert, awake, oriented X 3. Normal speech. PSYCH: Normal mood, normal affect. Const: Vital Signs, click to edit/add: Vital Signs - 24 hr 09/21/24 15:34 09/21/24 15:36 09/21/24 17:52 Temperature 101.2 F H 101.2 F H 100.5 F H Pulse Rate [Pulse Oximeter] 99 Respiratory Rate 18 Blood Pressure [Ri ght Arm] 142/89 H Pulse Oximetry 93 Oxygen Delivery Me thod Room Air 09/21/24 19:00 09/21/24 23:00 09/21/24 23:00 Temperature 100.3 F H 100.6 F H Pulse Rate [Pulse Oximeter] 115 H 128 H 128 H Respiratory Rate 18 20 Blood Pressure [Ri ght Arm] 142/66 H 145/84 H Pulse Oximetry 95 96 Oxygen Delivery Me thod Room Air Room Air 09/22/24 02:43 09/22/24 06:37 09/22/24 07:00 Temperature 102.4 F H 99.7 F H 99.0 F Pulse Rate [Pulse Oximeter] 111 H 108 H Respiratory Rate 20 18 Blood Pressure [Ri ght Arm] 160/78 H 122/81 Pulse Oximetry 97 97 Oxygen Delivery Me thod Room Air Room Air 09/22/24 07:00 09/22/24 12:13 Temperature 100.2 F H Pulse Rate [Pulse Oximeter] 108 H Respiratory Rate 18 Blood Pressure [Ri ght Arm] Pulse Oximetry Oxygen Delivery Me thod Labs Labs: Laboratory Results - last 24 hr 09/22/24 09/22/24 02:47 07:40 WBC 8.36 RBC 5.04 Hgb 10.7 L Hct 35.9 L MCV 71 L MCH 21 L MCHC 30 L Plt Count 356 Sodium 136 Potassium 4.0 Chloride 105 Carbon Dioxide 21 Anion Gap 10 BUN 9 Creatinine 1.0 Estimated Creat Clear 93.93 Estimated GFR 101 Glucose 96 Calcium 8.4 SARS-CoV-2 (PCR) Negative SARS-CoV-2 Influenza Type A (PCR) POSITIVE PCR FLU A A Influenza Type B (PCR) Negative PCR FLU B RSV (PCR) Negative PCR RSV
--- NOTE | 2024-09-22 19:35 | PC.NURSE ---
End of Shift: Patient pleasant and cooperative. Temp max 100.2. Pt c/o pain in left groin and generalized achiness 4-6/10 and PRN Dilaudid and Tylenol given x2. Morphine x1 and Ibuprofen x1. Up with SBA. Tolerating regular diet with no nausea. ABD dressing to left groin changed x1 with small amount of bloody drainage, packing in place. Redness receding from previously outlined area. Patient states no BM in a few days, offered stool softener and patient declined at this time.
[2024-09-23 02:09] VITALS: TEMP 37.7
[2024-09-23] MEDS: IBUPROFEN 400 MG TABLET PO ×3 (02:09→18:59)
[2024-09-23 02:13] VITALS: BP 146/86; PULSE 90; RESP 16; TEMP 37.7; O2SAT 96
[2024-09-23] MEDS: MORPHINE 2 MG/ML inj IVP ×2 (02:25→12:30)
[2024-09-23] MEDS: OMEPRAZOLE 20 MG CAPSULE DR PO ×2 (06:30→18:13)
--- NOTE | 2024-09-23 06:48 | PC.NURSE ---
End of shift [id number]: AxOx4, pleasant, and cooperative. Indep in room. Continent of the bladder. Pt reported pain to the L groin and generalized achiness. Poker Room Manager utilized PRN medication, see MAR.?The highest temp was 99.8. Dressing to the groin remans intact with small amount of bloody drainage. Redness is staying within the outlined area. Poker Room Manager offered stool softener due to no BM, Pt refused. ?AquaK pad used as a warm compress over a blanket, Pt tolerated for 15 min. Poker Room Manager gave education on the importance of drinking water instead of Dr. Schafer that his family brought in for him. SL to the L AC after receiving a liter of NS. Pt appears resting watching television with call light in reach.
[2024-09-23 06:54] LABS: Hematocrit 35.7 % (37.0-53.0); Hemoglobin* 10.8 gm/dL (13.5-17.5); Mean Corpuscular HGB Conc 30 gm/dL (32-36); Mean Corpuscular Hemoglobin 21 pg (26-34); Mean Corpuscular Volume 71 fL (80-100); Platelet Count* 345 K/uL (140-440); Red Blood Count 5.05 m/uL (4.30-5.90); White Blood Count* 5.36 K/uL (4.50-11.00)
[2024-09-23 06:59] LABS: Slide Review Reflex No
[2024-09-23 07:00] VITALS: BP 147/93; PULSE 98; RESP 20; TEMP 37.2; O2SAT 97
[2024-09-23 07:10] LABS: Chloride* 107 mmol/L (96-114); Sodium* 137 mmol/L (135-149)
[2024-09-23 07:13] LABS: Anion Gap 10 mEq/L (7-15); Blood Urea Nitrogen* 6 mg/dL (5-24); Calcium* 8.1 mg/dL (8.4-10.6); Carbon Dioxide* 20 mmol/L (20-32); Creatinine* 0.9 mg/dL (0.5-1.5); Est. Creatinine Clearance* 104.36; Estimated Glomerular Filt Rate 115 ml/min; Glucose* 92 mg/dL (60-115)
[2024-09-23] MEDS: ACETAMINOPHEN 325 MG TABLET 975 MG PO ×3 (08:19→22:00)
[2024-09-23] MEDS: SODIUM CHLORIDE 0.9 % (FLUSH) 10 ML SYRINGE 5 ML IVF ×2 (09:00→21:21)
[2024-09-23] MEDS: HYDROmorphone 2 MG TABLET PO (09:45)
[2024-09-23] MEDS: BENZONATATE 100 MG CAPSULE 200 MG PO ×3 (09:45→21:21)
[2024-09-23] MEDS: guaiFENesin 100 MG/ML CUP PO (09:46)
[2024-09-23 11:00] VITALS: BP 129/84; PULSE 94; RESP 18; TEMP 36.9; O2SAT 94
[2024-09-23] MEDS: VANCOMYCIN 1.5 GM/300 ML 1.5 GM/300 ML PIGGYBACK IVPB (12:06)
--- NOTE | 2024-09-23 12:39 | PM.WSCN ---
Date of Consult Consult date: 09/23/24 Requesting Physician: Hospitalist Primary Care Provider: Brian Foster MD Consult Narrative Narrative: Gaurav Hooper is a 34 year old male being seen today by Wound Services for open wound to left groin. He is status post I&D in the ER just prior to his admission. Patient had been on outpatient oral antibiotics, failed outpatient oral antibiotics in subsequently was admitted to the hospital for further evaluation in and IV antibiotic treatment. Wound culture is MRSA positive. Subsequently, upon admission screening, patient was also found to be positive for influenza A. Patient is currently afebrile. He reports pain to left groin significantly improved, rating it 4/10. Review of Systems Status of ROS: Reports: 6 or more systems reviewed and unremarkable except as noted in History and below [facility] Social History (Updated 09/20/24 @ 14:09 by Cindy Ann MD) Narrative: Gina would be MDM if needed. Nonsmoker, rare ETOH use. manager house for work. Requests DNR status. What is your current living situation?: I presently have a place to live Problems where you live: no known problems Problems where you live details: none In the past 12 months, utilities in danger of being shut off: no In past 12 months, lack of transportation kept you from medical appts, meetings, work, or getting things needed for daily living: no In the past 12 mos, have been you worried that your food would run out before you had money to buy more?: never true In the past 12 mos, the food you bought just didn't last and you didn't have money to buy more?: never true Highest level of school completed/degree received: Bachelor's degree Smoking Status: Never smoker Do you use any of these nicotine containing products: None Second hand tobacco smoke exposure: No How often do you have a drink containing alcohol: monthly or less How many standard drinks containing alcohol do you have on a typical day: 1 or 2 How often do you have six or more drinks on one occasion: Never AUDIT-C Alcohol total score: 1 Non-prescribed substance use: denies use How often does anyone, including family, friends and others, physically hurt you: never How often does anyone, including family, friends and others, insult or talk down to you: never How often does anyone, including family, friends and others, threaten you with harm: never How often does anyone, including family, friends and others, scream or curse at you: never service: No Meds Home Medications and Allergies Home Medications ?Medication ?Instructions ?Recorded ?Confirmed ?Type bupropion HCl 150 mg 24 hr tablet, 150 mg PO DAILY 09/20/24 09/20/24 History extended release cetirizine 10 mg tablet 10 mg PO DAILY 09/20/24 09/20/24 History famotidine 20 mg tablet 20 mg PO DAILY 09/20/24 09/20/24 History omeprazole 40 mg capsule,delayed 40 mg PO DAILY 09/20/24 09/20/24 History release phentermine 30 mg capsule 30 mg PO DAILY 09/20/24 09/20/24 History Allergies Allergy/AdvReac Type Severity Reaction Status Date / Time No Known Drug Allergies Allergy Verified 09/19/24 14:21 Exam Narrative: Exam Narrative: General: NAD, alert Head: NC/AT Pulmonary: unlabored, speaking in full sentences. Symmetrical rise Left groin wound: [id number] Undermining circumferential, deepest measurement of 1 cm. Wound exploration does not reveal any tracking or tunneling. drainage moderate: serosang. Periwound: Erythema is diffuse, remains within skin marking outline, receding in some areas. No notable fluctuance. Induration is mild. Admitting hospitalist at bedside, and shares that wound improved since IV antibiotics were initiated. Psych: normal affect Const: Vital Signs, click to edit/add: Vital Signs - 24 hr 09/22/24 15:00 09/22/24 15:00 09/22/24 19:00 Temperature 98.8 F 99 F Pulse Rate [Pulse Oximeter] 100 100 93 Respiratory Rate 16 16 18 Blood Pressure [Ri ght Arm] 147/89 H 145/80 H Pulse Oximetry 98 95 Oxygen Delivery Me thod Room Air Room Air 09/22/24 23:00 09/23/24 02:09 09/23/24 02:13 Temperature 99.1 F 99.8 F H 99.8 F H Pulse Rate [Pulse Oximeter] 93 90 Respiratory Rate 18 16 Blood Pressure [Ri ght Arm] 150/88 H 146/86 H Pulse Oximetry 96 96 Oxygen Delivery Me thod Room Air Room Air 09/23/24 07:00 Temperature 98.9 F Pulse Rate [Pulse Oximeter] 98 Respiratory Rate 20 Blood Pressure [Ri ght Arm] 147/93 H Pulse Oximetry 97 Oxygen Delivery Me thod Room Air Documenting provider has reviewed patient's vital signs: yes Labs Labs: Short CBC 09/23/24 Range/Units 06:22 WBC 5.36 (4.50-11.00) K/uL Hgb 10.8 L (13.5-17.5) gm/dL Hct 35.7 L (37.0-53.0) % Plt Count 345 (140-440) K/uL BMP 09/23/24 06:22 Sodium 137 Potassium 4.0 Chloride 107 Carbon Dioxide 20 BUN 6 Creatinine 0.9 Glucose 92 Calcium 8.1 L Assessment and Plan Assessment and plan (1) MRSA (methicillin resistant staph aureus) culture positive: Problem comment: -As above Status: Acute (2) Abscess of skin or subcutaneous tissue: Status: Acute (3) Inguinal abscess: Problem comment: - Lt inguinal abcess S/P I&D. Improving - Failed outpatient management, wound culture from 09/18/24 + for MRSA. - vancomycin initiated 09/20. - Will increase vancomycin dose 09/21. - warm compresses thrice daily. - Pain management: Acetaminophin, Hydromorphone PO, morphine IV PRN. - P/E cellulitis not extending to testes or perenium. Soft on palpation, no fluctuation. Color is not duscky and no crackling or empahsematous sensation on exam. - U/S done. Discussed U/S results w/ Gen Sx Dr Cannon. If no improvement s/p I&D and Tx w/ vancomycin, next step is a CT scan w/ contrast. Status: Acute Plan Wound exploration did not reveal any remaining pockets. No notable fluctuations. Skin temp within normal limits. Physical exam finding suggest infection is responding to current treatment plan. Surgical shave completed covering 4x4 periwound area. Wound cleansed with unit approved cleanser-dressing change completed by this director underwriter sales. Erythema is diffuse an is receding within Skin markings outlined. Hospitalist team will continue to manage IV antibiotics and discharge antibiotic plan. Dressing change orders: Wet to dry once daily dressing changes. -Pack 1/4 Vashe soaked packing gauze into wound bed, ensuring length allows for tail. Cover with bordered foam dressing, (biatain or mepilex comparables okay). Follow-up: patient will follow-up in wound center upon discharge. He is scheduled 09/25/24 @1330. dressing change completed today by wound services. Next dressing change due on 09/24/2024 prior to patient's tentatively planned discharge. Per hospitalist if wound continues to improve as it has, plan would be for discharge tomorrow. Nursing updated at bedside on wound care dressing orders. Wound Services will sign off, with planned post hospital discharge follow-up. Total Time Spent Total Time Spent: 45
--- NOTE | 2024-09-23 14:11 | PM.IMPN1 ---
Progress Note: A&P Assessment and plan (1) Inguinal abscess: Problem details: - Lt inguinal abcess S/P I&D. Improving - Failed outpatient management, wound culture from 09/18/24 + for MRSA. - vancomycin initiated 09/20. - Will increase vancomycin dose 09/21. - warm compresses thrice daily. - Pain management: Acetaminophin, Hydromorphone PO, morphine IV PRN. - P/E cellulitis not extending to testes or perenium. Soft on palpation, no fluctuation. Color is not duscky and no crackling or empahsematous sensation on exam. - U/S done. Discussed U/S results w/ Gen Sx Dr Cannon. If no improvement s/p I&D and Tx w/ vancomycin, next step is a CT scan w/ contrast. -improved cellulitis on my examination, all questions were answered. May DC home tomorrow 09/24 on PO Abx. Status: Acute (2) MRSA (methicillin resistant staph aureus) culture positive: Problem details: -As above Status: Acute (3) Cellulitis: Problem details: -As above -Improving -In addition, pt had an incision and drainage and a drain inserted at the ED. -Ordered a wound care consult. Status: Acute Plan improved cellulitis on my examination, all questions were answered. December DC home tomorrow on PO Abx. Time Spent With Patient Total time spent: Today I spent 50 minutes seeing the patient, reviewing Expanse and EPIC notes/diagnostics, discussing the care plan with our care time that includes social work, PT/OT, pharmacy, RT, penitentiary and documenting my impressions and plan in the medical record. Subjective Date Seen: 09/23/24 Interval history: Pt was seen and examined at bedside. Pt states that he is feeling much better, improved cellulitis on my examination, all questions were answered. May DC home tomorrow on PO Abx. Exam Narrative: Exam Narrative: Physical exam GENERAL: Comfortable, no acute distress. HEAD AND NECK: Atraumatic, normocephalic CARDIOVASCULAR: RRR. Normal S1, S2. No murmurs. RESPIRATORY: Clear to auscultation B/L. Good air entry B/L. No wheezes or rhonchi. MSK: improved color and size if Lt ingunal cellulitis, pack out. NEUROLOGY: Alert, awake, oriented X 3. Normal speech. No focal weakness. PSYCH: Normal mood, normal affect. Const: Vital Signs, click to edit/add: Vital Signs - 24 hr 09/22/24 15:00 09/22/24 15:00 09/22/24 19:00 Temperature 98.8 F 99 F Pulse Rate [Pulse Oximeter] 100 100 93 Respiratory Rate 16 16 18 Blood Pressure [Ri ght Arm] 147/89 H 145/80 H Pulse Oximetry 98 95 Oxygen Delivery Me thod Room Air Room Air 09/22/24 23:00 09/23/24 02:09 09/23/24 02:13 Temperature 99.1 F 99.8 F H 99.8 F H Pulse Rate [Pulse Oximeter] 93 90 Respiratory Rate 18 16 Blood Pressure [Ri ght Arm] 150/88 H 146/86 H Pulse Oximetry 96 96 Oxygen Delivery Me thod Room Air Room Air 09/23/24 07:00 09/23/24 11:00 Temperature 98.9 F 98.4 F Pulse Rate [Pulse Oximeter] 98 94 Respiratory Rate 20 18 Blood Pressure [Ri ght Arm] 147/93 H 129/84 Pulse Oximetry 97 94 Oxygen Delivery Me thod Room Air Room Air Labs Labs: Laboratory Results - last 24 hr 09/23/24 06:22 WBC 5.36 RBC 5.05 Hgb 10.8 L Hct 35.7 L MCV 71 L MCH 21 L MCHC 30 L Plt Count 345 Sodium 137 Potassium 4.0 Chloride 107 Carbon Dioxide 20 Anion Gap 10 BUN 6 Creatinine 0.9 Estimated Creat Clear 104.36 Estimated GFR 115 Glucose 92 Calcium 8.1 L
[2024-09-23 15:00] VITALS: BP 127/78; PULSE 90; PULSE 94; RESP 18; TEMP 37; O2SAT 97
--- NOTE | 2024-09-23 18:44 | PC.NURSE ---
Nursing Care Hours: [id number] Pt this shift calm and cooperative, alert and oriented. Generalized and local groin pain treated per eMAR. Alternating with ibuprofen and Tylenol and using Dilaudid and morphine PRN. Pt showered today. Wound nurse changed packing and dressing. Pt had pain but tolerated well. Independent in room. Semi Truck Driver encouraged pt to use heating pad but pt denies using it. Semi Truck Driver encouraged pt to walk the halls with mask but pt declined. VSS, afebrile.
[2024-09-23 19:00] VITALS: BP 134/74; PULSE 82; RESP 16; TEMP 36.5; O2SAT 97
--- NOTE | 2024-09-23 22:51 | PC.NURSE ---
End of shift [id number]: Upon initial assessment, typewriters functional tester found a vape on Pts tray. Pt was asked to either have the take it home or we could store it until discharge. and daughter came to visit and Pt reported taking it back home. AxOx4, pleasant, and cooperative. Pt reported pain to the L groin and generalized achiness 2/10. Padder Cushion utilized PRN medication, see MAR. Dressing to the groin remains intact with scant amount of bloody drainage. Redness is staying within the outlined area. Pt refused a heated compress. Pt reported that he had a BM 2/2 but was not certain. Pt is passing flatus, bowel sounds active. Pt appears resting watching television with call light in reach. ?
[2024-09-24 00:09] VITALS: BP 142/87; PULSE 89; RESP 16; TEMP 36.6; O2SAT 98
[2024-09-24] MEDS: VANCOMYCIN 1.5 GM/300 ML 1.5 GM/300 ML PIGGYBACK IVPB ×2 (00:11→11:07)
[2024-09-24] MEDS: HYDROmorphone 2 MG TABLET PO ×2 (01:03→10:16)
[2024-09-24] MEDS: IBUPROFEN 400 MG TABLET PO ×2 (01:03→10:16)
[2024-09-24 02:05] VITALS: BP 129/89; PULSE 79; RESP 16; TEMP 36.4; O2SAT 96
[2024-09-24] MEDS: ACETAMINOPHEN 325 MG TABLET 975 MG PO (06:46)
[2024-09-24] MEDS: OMEPRAZOLE 20 MG CAPSULE DR PO (06:46)
--- NOTE | 2024-09-24 06:52 | PC.NURSE ---
End of shift note [id number]: Pt is alert and oriented x3. Afebrile. Pt reports 2-6/10 pain in groin, managed with PRN medications. Cellulitis is pink in color and receding from outline. Pt?s dressing was changed d/t Mepilex peeling off around edges, dressing is CDI. Pt is up ad fabricio, voiding, and tolerating a regular diet. ?
[2024-09-24 07:22] LABS: Hematocrit 35.8 % (37.0-53.0); Hemoglobin* 10.7 gm/dL (13.5-17.5); Mean Corpuscular HGB Conc 30 gm/dL (32-36); Mean Corpuscular Hemoglobin 21 pg (26-34); Mean Corpuscular Volume 71 fL (80-100); Platelet Count* 319 K/uL (140-440); Red Blood Count 5.04 m/uL (4.30-5.90); White Blood Count* 3.88 K/uL (4.50-11.00)
[2024-09-24 07:27] LABS: Slide Review Reflex No
[2024-09-24 07:43] LABS: Chloride* 109 mmol/L (96-114); Potassium* 3.6 mmol/L (3.6-5.1); Sodium* 139 mmol/L (135-149)
[2024-09-24 07:46] LABS: Anion Gap 9 mEq/L (7-15); Carbon Dioxide* 21 mmol/L (20-32); Creatinine* 0.9 mg/dL (0.5-1.5); Est. Creatinine Clearance* 104.36; Estimated Glomerular Filt Rate 115 ml/min
[2024-09-24 07:47] LABS: Blood Urea Nitrogen* 8 mg/dL (5-24); Calcium* 8.1 mg/dL (8.4-10.6); Glucose* 103 mg/dL (60-115)
[2024-09-24 08:30] VITALS: BP 130/100; PULSE 80; RESP 16; TEMP 36.6; O2SAT 97
[2024-09-24] MEDS: SODIUM CHLORIDE 0.9 % (FLUSH) 10 ML SYRINGE 5 ML IVF (09:01)
[2024-09-24] MEDS: BENZONATATE 100 MG CAPSULE 200 MG PO (09:01)
--- NOTE | 2024-09-24 11:35 | PM.DS1 ---
DS: Providers Provider Date Seen: 09/24/24 Date of admission: 09/20/24 13:42 Primary care physician: Brian Foster MD Admitting Clinician: Cindy Ann MD Consults: 09/21/24 12:54 Consult to Wound Care [CONS] Routine Comment: Consulting Provider: [facility] Attending Physician on discharge: Concepcion Klein MD DS: Summary Hospital Course Hospital Course: A 34 YO M pt who presents w/ MRSA Lt inguinal abcess and cellulitis. I&D and packing of the wound was performed. IV vanc administered and pt improved immensely. Pt needs to complete a course of PO Abx and f/up w/ the wound clinic. Status at Discharge Functional status at discharge: independent ambulation Overall status at discharge: patient is progressing back to baseline Time Spent with Patient Time attestation: Total time spent providing and/or coordinating discharge services: Exam Narrative: Exam Narrative: GENERAL: Comfortable, no acute distress. HEAD AND NECK: Atraumatic, normocephalic CARDIOVASCULAR: RRR. Normal S1, S2. No murmurs. RESPIRATORY: Clear to auscultation B/L. Good air entry B/L. No wheezes or rhonchi. MSK: Normal skin of Lt ingunal area, clean 1 cm wound, no pus. NEUROLOGY: Alert, awake, oriented X 3. Normal speech. No focal weakness. PSYCH: Normal mood, normal affect. Const: Vital Signs, click to edit/add: Vital Signs - 24 hr 09/23/24 15:00 09/23/24 15:00 09/23/24 19:00 Temperature 98.6 F 97.7 F Pulse Rate [Pulse Oximeter] 94 90 82 Respiratory Rate 18 18 16 Blood Pressure [Ri t Arm] 127/78 134/74 Pulse Oximetry 97 97 Oxygen Delivery Me thod Room Air Room Air 09/24/24 00:09 09/24/24 02:05 09/24/24 08:30 Temperature 97.8 F 97.5 F L Pulse Rate [Pulse Oximeter] 89 79 80 Respiratory Rate 16 16 16 Blood Pressure [Ri t Arm] 142/87 H 129/89 Pulse Oximetry 98 96 Oxygen Delivery Me thod Room Air Room Air 09/24/24 08:30 Temperature 97.9 F Pulse Rate [Pulse Oximeter] 80 Respiratory Rate 16 Blood Pressure [Ri ght Arm] 130/100 H Pulse Oximetry 97 Oxygen Delivery Me thod Room Air DS: Data Data Completed and Pending Labs on day of discharge: Labs from last 24 hours 09/24/24 06:52 WBC 3.88 L RBC 5.04 Hgb 10.7 L Hct 35.8 L MCV 71 L MCH 21 L MCHC 30 L Plt Count 319 Sodium 139 Potassium 3.6 Chloride 109 Carbon Dioxide 21 Anion Gap 9 BUN 8 Creatinine 0.9 Estimated Creat Clear 104.36 Estimated GFR 115 Glucose 103 Calcium 8.1 L Discharge Plan Discharge Disposition: Home, Self-Care Date of Admission: 09/20/24 13:42 Attending Provider on Discharge: Concepcion Klein Consulting Providers: Mame Black; Valerie Ortiz Primary Care Provider: Brian Foster Condition: Improved Anticipated Discharge Date/Time: 09/24/24 11:18 Discharge Medications: New doxycycline monohydrate 100 mg capsule 100 mg PO BID Qty: 14 0RF oxycodone-acetaminophen 5-325 mg tablet 1 tab PO Q8H PRN (Reason: pain) Qty: 3 0RF Continued cetirizine 10 mg tablet 10 mg PO DAILY omeprazole 40 mg capsule,delayed release(DR/EC) 40 mg PO DAILY phentermine 30 mg capsule 30 mg PO DAILY famotidine 20 mg tablet 20 mg PO DAILY bupropion HCl 150 mg tablet extended release 24 hr 150 mg PO DAILY Discharge Orders: Discharge Order (Routine); Ordered 09/24/24 Ordered By: Concepcion Klein Patient Education: Doxycycline (By mouth), Oxycodone/Acetaminophen (By mouth) (Percocet, Roxicet), Cellulitis (GEN) Activity Level: Activity as Tolerated Discharge Diet: Regular Follow Up Appointments: [facility] [Provider Group] - 09/25/24 1:30 pm ([facility] for follow-up.) Brian Foster MD [Primary Care Provider] - Provider,Not a Local [Non-Staff] - Forms: [facility], Inceal Info Instructions
== END 2024-09-24 13:12 | disposition home or self-care (01) | DRG 603 ==
LOC: ED 13:00 → MEDSURG 13:14
PROVIDERS: Internal Medicine; Student in an Organized Health Care Education/Training Program; Admitting Provider Family Medicine; Emergency Provider Family Medicine; PCP Family Medicine; Visit Provider Family Medicine
DX: L02.214 Cutaneous abscess of groin (principal); Z16.24 Resistance to multiple antibiotics; B95.62 Methicillin resistant Staphylococcus aureus infection as the cause of diseases classified elsewhere; L03.314 Cellulitis of groin; J09.X2 Influenza due to identified novel influenza A virus with other respiratory manifestations
CPT/HCPCS: 36415; 76857; 80048; 85025; 85027; 86140; 87631; 93005; 99284; 99285; A9270; J1171; J1885; J2270; J3372; J7030

== ENCOUNTER 2024-09-25 13:07 | Outpatient (CLI) | payer OTHER, SELFPAY | END 2024-09-25 13:08 | disposition home or self-care (01) | LOC: WOUND 13:07 | PROVIDERS: PCP Family Medicine; Visit Provider Family Medicine | DX: L02.214 Cutaneous abscess of groin (principal); E66.9 Obesity, unspecified; Z68.39 Body mass index [BMI] 39.0-39.9, adult | CPT/HCPCS: G0463 ==